=== PATIENT | male | born 1965 | race Caucasian/White ===

== ENCOUNTER → 2018-12-14 13:31 | Outpatient (CLI) | payer SELFPAY ==
--- NOTE | 2018-12-14 13:49 | CT_ITS ---
STUDY: CT CHEST WITHOUT CONTRAST REASON FOR EXAM: Male, 53 years old. Calcium scoring examination. Radiology over read examination. RADIATION DOSAGE (If Supplied By Facility): CTDIvol = ( 12.19 ) mGy, DLP = ( 243.79 ) mGycm TECHNIQUE: Transaxial imaging was performed without the administration of intravenous contrast material. Individualized dose optimization techniques were used for this CT. COMPARISON: None. FINDINGS: The lungs are normal. There is no demonstrated pleural abnormality. There are calcifications of the coronary arteries. Normal mediastinum. Normal hilar regions. Normal unenhanced pulmonary arteries. Normal aorta arch and descending thoracic aorta. There are multi-level degenerative changes of the thoracic spine. There is no demonstrated abnormality of the visualized upper abdomen. CT/Limited Chest CT w/CCTA IMPRESSION: Coronary artery calcification. Electronically Signed: Kentrell Wall, at 13:39 EST , Service support ,
[2018-12-14 14:03] VITALS: BP 122/69; PULSE 59; RESP 16; O2SAT 100; BMI 27.7
--- NOTE | 2018-12-15 09:58 | CA.SCORE ---
Calcium Scoring Date of Study:: 12/14/18 Coronary Calcium Scoring: Coronary calcium score: Left main: 0 Left anterior descendin.79 Left circumflex: 0 Right coronary artery: 0 Total Agatston score: 1.79 Conclusion: The total calcium score (1.79) is between the 25th and 50th percentile for men between the ages of 50 and 54. (Exact percentile calculated to be 26%; this means 25% of the population has a lower calcium score and 74% of the population has a higher calcium score than this patient.) Impression: Impression: A calcium score of 1-10 demonstrates minimal plaque burden and significant coronary artery disease is very unlikely. A full evaluation of cardiac risk should include an assessment of all conventional risk factors, and the scores and percentile ranking is reported herein should be evaluated in this context.
== END ==
PROVIDERS: Family Provider Internal Medicine; PCP Internal Medicine; Referring Provider Internal Medicine; Visit Provider Internal Medicine
DX: E78.00 Pure hypercholesterolemia, unspecified (principal); E11.9 Type 2 diabetes mellitus without complications
CPT/HCPCS: 75571; 76380